=== PATIENT | male | born 1960 | race Caucasian/White ===

== ENCOUNTER → 2022-05-27 17:18 | Outpatient (CLI) | payer MEDICAID, SELFPAY ==
[2022-05-27 17:17] LABS: Cholesterol 166 mg/dl (140-200); HDL Cholesterol 42 mg/dl (40-60); Triglycerides 82 mg/dl (30-150); VLDL Cholesterol 16 mg/dL (0-40)
[2022-05-27 17:50] LABS: Thyroid Stimulating Hormone 0.92 uIU/mL (0.465-4.68)
== END ==
PROVIDERS: PCP Family Medicine; Visit Provider Family Medicine
DX: Z00.00 Encounter for general adult medical examination without abnormal findings (principal); E03.9 Hypothyroidism, unspecified; Z79.899 Other long term (current) drug therapy
CPT/HCPCS: 80061; 84443

== ENCOUNTER 2023-05-19 17:35 | Outpatient (CLI) | payer MEDICAID, SELFPAY ==
[2023-05-19 17:12] LABS: Thyroid Stimulating Hormone 1.64 uIU/mL (0.465-4.68)
== END 2023-05-19 23:59 ==
LOC: LAB.DROPOF 17:35
PROVIDERS: PCP Family Medicine; Visit Provider Family Medicine
DX: E03.9 Hypothyroidism, unspecified (principal)
CPT/HCPCS: 84443

== ENCOUNTER 2024-05-24 08:52 | Outpatient (CLI) | payer MEDICAID, SELFPAY ==
[2024-05-24 17:02] LABS: Basophils # 0.1 K/mm3 (0-0.2); Basophils % 0.8 % (0.1-2.0); Eosinophils % 0.5 % (0.1-12.0); Hematocrit 50.2 % (42.0-52.0); Hemoglobin 16.9 g/dL (14.1-18.0); Lymphocytes # 1.7 K/mm3 (0.7-4.5); Lymphocytes % 22.1 % (10-50); Mean Corpuscular HGB Conc 33.7 g/dL (31.8-35.4); Mean Corpuscular Hemoglobin 31.3 pg (27.0-31.2); Mean Platelet Volume 10.5 fl (7.4-10.4); Monocytes # 0.6 K/mm3 (0.1-1.0); Monocytes % 8.2 % (1.7-9.3); Neutrophils # 5.1 K/mm3 (1.8-7.8); Platelet Count 259 K/mm3 (142-424); Red Cell Distribution Width 13.2 % (11.5-17.5); White Blood Count 7.5 K/mm3 (4.8-10.8)
[2024-05-24 18:30] LABS: Alanine Aminotransferase 32 U/L (12-78); Albumin Level 4.2 g/dl (3.5-5.0); Albumin/Globulin Ratio 1.3 (1.1-1.8); Alkaline Phosphatase 51 U/L (38-126); Anion Gap 12.6 mEq/L (5-15); Aspartate Amino Transferase 37 U/L (17-59); Bilirubin,Total 0.8 mg/dl (0.2-1.3); Blood Urea Nitrogen 14 mg/dl (9-20); Calcium 9.7 mg/dl (8.4-10.2); Carbon Dioxide 33 mmol/L (22.0-30.0); Chloride 95 mmol/L (98-107); Cholesterol 182 mg/dl (140-200); Estimated Glomerular Filt Rate 75 ml/min (>60); GFR (African American) 91 ML/MIN (>60); Globulin 3.2 g/dL (1.3-3.2); Glucose 109 mg/dl (74-100); HDL Cholesterol 45 mg/dl (40-60); Potassium 3.6 mmoL/L (3.5-5.1); Sodium 137 mmol/L (136-145); Total Protein,Serum 7.4 g/dl (6.3-8.2); Triglycerides 95 mg/dl (30-150); VLDL Cholesterol 19 mg/dL (0-40)
[2024-05-24 18:50] LABS: Direct LDL Cholesterol 110.41 mg/dL (100-129)
[2024-05-24 18:59] LABS: Prostate Specific Ag Screen 0.6 ng/ml (0.0-4.0); Thyroid Stimulating Hormone 1.36 uIU/mL (0.465-4.68)
[2024-05-24 19:49] LABS: Hepatitis C Ab Qual. W/ RFX NEGATIVE (Negative)
[2024-05-24 19:58] LABS: HIV Combo NEGATIVE (Negative)
== END 2024-05-24 23:59 | disposition home or self-care (01) ==
LOC: LAB.DROPOF 05-25 14:49
PROVIDERS: PCP Family Medicine; Visit Provider Family Medicine
DX: E03.9 Hypothyroidism, unspecified (principal); Z11.4 Encounter for screening for human immunodeficiency virus [HIV]; I10 Essential (primary) hypertension; Z11.59 Encounter for screening for other viral diseases
CPT/HCPCS: 80053; 80061; 84443; 85025; 86803; 87389; G0103

== ENCOUNTER 2024-12-15 14:00 | Outpatient (CLI) | payer MEDICARE, MEDICAID, SELFPAY ==
--- OUTSIDE RECORDS SUMMARY | 2025-02-04 12:14 | XMS_ITS | Clinical Summary ---
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 30 tablet 11 9 Active loratadine (CLARITIN) 10 MG tablet Take 10 mg by mouth Daily. Active famotidine (PEPCID) 20 MG tabletIndications:G astroesophageal reflux disease without esophagitis Take 2 tablets by mouth Daily. 180 tablet 3 2 Active indapamide (LOZOL) 2.5 MG tabletIndications:P rimary hypertension Take 1 tablet by mouth Daily. 90 tablet 3 2 Active Thyroid ([employer]IST THYROID) 60 MG PO tabletIndications:A cquired hypothyroidism Take 1 tablet by mouth Daily. 90 tablet 3 2 Active Thyroid (AIR[employer] SPECIALIST THYROID) 90 MG PO tabletIndications:A cquired hypothyroidism Take 1 tablet by mouth Daily. 90 tablet 3 2 Active potassium chloride 10 MEQ CR tabletIndications:P rimary hypertension Take 1 tablet by mouth 2 (Two) Times a Day With Meals. 180 tablet 3 2 Active Active Problems Problem Noted Date Diagnosed Date Arthritis of hand 05/25/2021 Assessment & Plan (05/25/2021 9:31 AM EDT): Chronic and somewhat worsening. Patient cannot use Voltaren gel due to allergy. Patient will try other NSAIDs which she is tolerated in the past. The patient does not have improvement of symptoms we will refer to hand specialist at follow-up visit. Well adult exam 11/24/2020 Assessment & Plan (11/24/2020 10:25 AM EDT): The patient is here for health maintenance visit. Currently, the patient consumes a healthy diet and has an adequate exercise regimen. Screening lab work is ordered. Immunizations were reviewed today. Advice and education was given regarding nutrition, aerobic exercise, routine dental evaluations, routine eye exams, reproductive health, cardiovascular risk reduction, sunscreen use, self skin examination (annual dermatology evaluations) and seatbelt use (general overall safety). Further recommendations will be given if needed after lab evaluation. Annual wellness evaluation is recommended. Idiopathic urticaria 05/06/2017 Calculus of kidney 05/06/2017 Thyroid cancer 05/06/2017 Allergic rhinitis 01/08/2016 BPH without urinary obstruction 01/08/2016 GERD (gastroesophageal reflux disease) 6 Assessment & Plan (05/25/2021 9:29 AM EDT): Chronic and stable. Continue current medications. Hyperlipidemia 01/08/2016 Assessment & Plan (05/25/2021 9:29 AM EDT): Chronic and stable. We discussed starting medication versus diet lifestyle modification. Patient would like to try diet lifestyle modification before starting medication. We will recheck in 6 months. Hypertension 01/08/2016 Assessment & Plan (05/25/2021 9:29 AM EDT): Hypertension is unchanged. Continue current treatment regimen. Blood pressure will be reassessed at the next regular appointment. Hypokalemia 01/08/2016 Hypothyroidism 01/08/2016 Assessment & Plan (05/25/2021 9:29 AM EDT): Chronic and stable. We will recheck TSH today and make medication adjustments as indicated. Resolved Problems Problem Noted Date Diagnosed Date Resolved Date Chronic thyroiditis 01/08/2016 05/26/19 22 Immunizations Immunization Administration Dates Next Due COVID-19 ([place]) 04/27/2020 Flu Vaccine Quad PF >36MO 01/24/2017 FluMist 2-49yrs 01/25/2015 Fluzone (or Fluarix & Flulaval for VFC) >6mos ,11/19/2019 Influenza TIV (IM) 01/26/2016 Tdap 07/26/2014 flucelvax quad pfs =>4 YRS 11/13/2018 Family History Medical History Relation Name Comments Coronary artery disease Brother 1 ALS Brother 2 Colon cancer Father Hypertension Father Other Maternal Grandfather unknown Other Maternal Grandmother unknown Uterine cancer Mother Other Paternal Grandfather unknown Other Paternal Grandmother unknown No Known Problems Sister 1 No Known Problems Sister 2 No Known Problems Sister 3 Other Sister 4 post op infecti on Relation Name Status Comments Brother 1 Alive Brother 2 Father Maternal Grandfather Maternal Grandmother Mother Paternal Grandfather Paternal Grandmother Sister 1 Alive Sister 2 Alive Sister 3 Alive Sister 4 Social History Tobacco Use Types Packs/Day Years Used Date Smoking Tobacco: Never Smokeless Tobacco: Never Tobacco Cessation:Counseling Given: Yes Alcohol Use Standard Drinks/Week Comments No 0 (1 standard drink = 0.6 oz pur e alcohol) PHQ-2 Answer Date Recorded Retired Total Score 0 11/24/2020 Abuse Screen Answer Date Recorded Unsafe at Home or Work/School Not on file Feels Threatened by Someone? Not on file 10/2022 Does Anyone Keep You from Co ntacting Others or Doint Things Outside the Home? Not on file 11/25/2022 Physical Sign of Abuse Present Not on file 1 Housing Stability Answer Date Recorded Current Living Arrangements Not on file 10/2022 Potentially Unsafe Housing Conditions Not on daya e 11/25/2022 Family and Community Support Answer Luisito e Recorded Help with Day-to-Day Activities Not on file 11/25/2022 Lonely or Isolated Not on file 11/25/2022 Employment Answer Date Recorded Do you want help finding or keeping work or a sammy b? Not on file 11/25/2022 Disabilities Answer Date Recorded Concentrating, Remembering, or Making Decisions Difficulty Not on file 11/25/2022 Doing Errands Independently Difficulty Not on fi le 11/25/2022 Education Answer Date Recorded Help with school or training? Not on file Preferred Language Not on file 11/25/2022 Sex and Gender Information Value Date Recorded Sex Assigned at Not on file Legal Sex Male 11:51 AM EDT Gender Identity Not on file Sexual Orientation Not on file Occupation Industry Job Start Date Job End Date [employer] Not on file Not on file Not o n file Last Filed Vital Signs Vital Sign Reading Time Taken Comments Blood Pressure 130/82 05/25/2021 9:16 AM EDT Pulse 87 05/25/2021 8:39 AM EDT Temperature 36.7 C (98 F) 05/25/2021 8:39 AM EDT Respiratory Rate 20 05/08/2020 8:20 AM EDT Oxygen Saturation 98% 05/25/2021 8:39 AM EDT Inhaled Oxygen Concentration - - Weight 123 kg (272 lb) 05/25/2021 8:39 AM EDT Height 182.9 cm (6') 05/25/2021 8:39 AM EDT Body Mass Index 36.89 05/25/2021 8:39 AM EDT Plan of Treatment Health Maintenance Due Date Last Done Comments COLOGUARD 12/16/2004 COLON CANCER SCREENING 5 YEA R SIGMOIDOSCOPY 12/16/2004 CT COLONOGRAPHY 12/16/2004 FECAL OCCULT BLOOD TEST 12/16/2004 FIT Testing (1 year) 12/16/2004 Pneumococcal Vaccine 50+ (1 of 1 - PCV) 12/16/2009 ZOSTER VACCINE (1 of 2) 12/16/2009 ANNUAL PHYSICAL 11/18/2020 11/19/2019 LIPID PANEL 11/24/2021 11/24/2020, 03/2019, 11/13/2018, Additional history exists COLONOSCOPY 01/13/2022 01/13/2019, 12/19, 01/10/2016, Additional history exists COLORECTAL CANCER SCREENING 01/13/2022 TDAP/TD VACCINES (2 - Td or Tdap) 07/26/2024 015 INFLUENZA VACCINE 09/17/2024 11/24/2020, , 11/13/2018, Additional history exists COVID-19 Vaccine (3 - 2024-2 6 season) 2024 12/21/2020, 04/27/2020 AAA SCREEN ONCE 12/16/2024 HEPATITIS C SCREENING Completed 07/26/2016 Procedures Procedure Name Priority Date/Time Associated Diagnosis Comments LIPID PANEL Routine 11/24/2020 10:54 AM EDT Well adult exam Pure hypercholesterolemia SCANNED - COLONOSCOPY 01/13/2019 SCANNED - INFLUENZA 11/13/2018 HEPATITIS C ANTIBODY Routine 07/26/2016 8:52 AM EDT Need for hepatitis C screening test from Last 3 Months or Most Recently Relevant to Health Maintenance Results * (ABNORMAL) Lipid Panel (11/24/2020 10:54 AM EDT) Total Cholesterol 187 0 - 200 mg/dL 11/24/2020 11:57 PM EDT [facility] Triglycerides 105 0 - 150 mg/dL 11/24/2020 11:57 PM EDT [facility] HDL Cholesterol 35(L) 40 - 60 mg/dL 11/24/2020 11:57 PM EDT [facility] LDL Cholesterol 133(H) 0 - 100 mg/dL 11/24/2020 11:57 PM EDT [facility] VLDL Cholesterol 19 5 - 40 mg/dL 11/24/2020 11:57 PM EDT [facility] LDL/HDL Ratio 3.74 11/24/2020 11:57 PM EDT [facility] Blood Left upper arm structure / Unknown Venipuncture / Unknown 11/24/2020 10:54 AM EDT 11/24/2020 10:56 AM EDT Narrative [facility] - 11/24/2020 11:57 PM EDT Cholesterol Reference Ranges (U.S. Department of Health and Human Services ATP III Classifications) Desirable <200 mg/dL Borderline High 200-239 mg/dL High Risk >240 mg/dL Triglyceride Reference Ranges (U.S. Department of Health and Human Services ATP III Classifications) Normal <150 mg/dL Borderline High 150-199 mg/dL High 200-499 mg/dL Very High >500 mg/dL HDL Reference Ranges (U.S. Department of Health and Human Services ATP III Classifcations) Low <40 mg/dl (major risk factor for CHD) High >60 mg/dl ('negative' risk factor for CHD) LDL Reference Ranges (U.S. Department of Health and Human Services ATP III Classifcations) Optimal <100 mg/dL Near Optimal 100-129 mg/dL Borderline High 130-159 mg/dL High 160-189 mg/dL Very High >189 mg/dL Result [facility] Elder Andre MD LAB BLOOD ORDERABLES Final Result [facility]
[address] [place] [address], [place] [phone] * SCANNED - COLONOSCOPY (01/13/2019) Result [facility] Desmond Mares MD CHART REVIEW TABS Final Re sult * SCANNED - INFLUENZA (11/13/2018) Desmond Mares MD CHART REVIEW TABS Final Re sult * Hepatitis C Antibody (07/26/2016 8:52 AM EDT) Hepatitis C Ab Non-Reacti ve Non-Reacti ve 07/26/2016 5:10 PM EDT [facility] Blood Left upper arm structure / Unknown Venipuncture / Unknown 07/26/2016 8:52 AM EDT 07/26/2016 8:52 AM EDT Result [facility] Desmond Mares MD LAB BLOOD ORDERABLES Final Re sult [facility]
[address] [place] [address], [place] [phone] from Last 3 Months or Most Recently Relevant to Health Maintenance Insurance [employer] Care Teams Circular Saw Filer Relationship Specialty Start Date End Date Elder Andre MD [address] [place] [address] PCP - General Family Medicine 11/24/20
== END 2024-12-15 23:59 | disposition home or self-care (01) ==
LOC: LAB 02-04 12:12
PROVIDERS: PCP Family Medicine; Visit Provider Student in an Organized Health Care Education/Training Program
DX: L72.0 Epidermal cyst (principal); L57.0 Actinic keratosis
CPT/HCPCS: 88305